=== PATIENT | male | born 2005 | race Two or more races ===

== ENCOUNTER 2024-04-04 15:45 | Emergency (ER) | payer SELFPAY ==
[~2024-04-04] VITALS: Ht 177.8 cm; Wt 58.3 kg
[2024-04-04 15:59] VITALS: BP 113/79; PULSE 109; RESP 16; O2SAT 96
== END 2024-04-04 18:27 | disposition left against medical advice (07) ==
LOC: ER 15:45
DX: R11.2 Nausea with vomiting, unspecified (principal); Z53.21 Procedure and treatment not carried out due to patient leaving prior to being seen by health care provider